=== PATIENT | female | born 1995 | race Caucasian/White ===

== ENCOUNTER 2018-05-16 18:42 | Emergency (ER) | payer MEDICAID ==
[~2018-05-16] VITALS: Ht 167.6 cm; Wt 58.8 kg
[2018-05-16 18:44] VITALS: BP 107/71
[2018-05-16] MEDS ORDERED: DEXAMETHASONE 1 MG TABLET PO ONE (19:30)
[2018-05-16] MEDS ORDERED: OXYMETAZOLINE NASAL SPRAY 0.05%, 15ML NAS ONE (19:30)
[2018-05-16] MEDS ORDERED: OXYMETAZOLINE NASAL SPRAY 0.05%, 15ML ONE (19:32)
[2018-05-16] MEDS ORDERED: DEXAMETHASONE 4 MG TABLET ONE (19:34)
== END 2018-05-16 19:58 | disposition home or self-care (01) ==
LOC: ED 19:15
DX: J01.00 Acute maxillary sinusitis, unspecified (principal); J45.909 Unspecified asthma, uncomplicated; F17.200 Nicotine dependence, unspecified, uncomplicated
CPT/HCPCS: 99283

== ENCOUNTER 2019-05-27 08:04 | Inpatient (IN) | payer MEDICAID ==
[~2019-05-27] VITALS: Ht 167.6 cm; Wt 66.0 kg
[2019-05-27] MEDS ORDERED: D5%-LACTATED RINGERS 1,000 ML IV SCH (08:28)
[2019-05-27] MEDS ORDERED: OXYTOCIN 30U/ 0.9% NaCL 500ML 500 ML IV ONE (08:28)
[2019-05-27] MEDS ORDERED: OXYTOCIN 30U/ 0.9% NaCL 500ML 500 ML IV PRN (08:28)
[2019-05-27] MEDS ORDERED: SODIUM CHLORIDE FLUSH 10ML SYR IVF PRN (08:30)
[2019-05-27] MEDS ORDERED: FENTANYL PF 100 MCG/2ML IVPush PRN (08:30)
[2019-05-27] MEDS ORDERED: METOCLOPRAMIDE 5 MG/ML, 2ML IVPush PRN (08:30)
[2019-05-27] MEDS ORDERED: FENTANYL PF 100 MCG/2ML IV PRN (08:30)
[2019-05-27] MEDS ORDERED: TERBUTALINE 1 MG/ML, 1ML IVPush PRN (08:30)
[2019-05-27] MEDS ORDERED: ONDANSETRON 2MG/ML, 2ML IVPush PRN ×2 (08:30→17:00)
[2019-05-27] MEDS ORDERED: SODIUM CITRATE/CITRIC ACID 15 ML UDC PO PRN (08:30)
[2019-05-27] MEDS ORDERED: NEWBORN KIT ONE (08:56)
[2019-05-27] MEDS ORDERED: MISOPROSTOL 200 MCG TABLET ONE (08:56)
[2019-05-27] MEDS ORDERED: LIDOCAINE 1%, 20ML ONE (08:56)
[2019-05-27] MEDS ORDERED: OXYTOCIN 30U/ 0.9% NaCL 500ML 500 ML ONE (08:57)
[2019-05-27] MEDS: LACTATED RINGERS 1,000 ML IV SCH ×2 (09:09→17:37)
[2019-05-27 09:14] LABS: BASOPHILS # (AUTO) 0.06 x10^3/uL (0-0.1); BASOPHILS % (AUTO) 1 % (0-1); EOSINOPHILS # (AUTO) 0.27 x10^3/uL (0-0.4); EOSINOPHILS % (AUTO) 3 % (1-7); LYMPHOCYTES # (AUTO) 1.75 x10^3/uL (1-3.4); LYMPHOCYTES % (AUTO) 19 % (22-44); MD NO; MEAN CORPUSCULAR HEMOGLOBIN 29.7 pg (27.0-34.8); MEAN CORPUSCULAR HGB CONC 32.8 g/dL (32.4-35.8); MEAN CORPUSCULAR VOLUME 90.6 fL (80-100); MEAN PLATELET VOLUME 9.4 fL (7.4-10.4); MONOCYTES # (AUTO) 0.43 x10^3/uL (0.2-0.8); MONOCYTES % (AUTO) 5 % (2-9); NEUTROPHILS # (AUTO) 6.56 x10^3/uL (1.8-6.8); NEUTROPHILS % (AUTO) 72 % (42-75); PLATELET COUNT 188 x10^3/uL (130-400); RED BLOOD COUNT 4.14 x10^6/uL (3.82-5.3); RED CELL DISTRIBUTION WIDTH 13.8 % (9.6-15.2)
[2019-05-27] MEDS ORDERED: FENTANYL/BUPIV./NS/PF 250 ML EPIDCONT SCH ×2 (15:52→16:39)
[2019-05-27] MEDS ORDERED: LACTATED RINGERS 1,000 ML IVBOLUS PRN ×2 (16:00→18:00)
[2019-05-27] MEDS ORDERED: FENTANYL PF 500 MCG, BUPIVACAINE/PF 0.5%, 30ML 62.5 ML in SODIUM CHLORIDE 0.9% 177.5 ML EPIDCONT SCH (16:00)
[2019-05-27] MEDS ORDERED: BUPIVACAINE 0.25% ONE ×2 (16:16→20:55)
[2019-05-27] MEDS ORDERED: LIDOCAINE/PF 1.5%-EPI 1:200K, 30ML ONE (16:16)
[2019-05-27] MEDS ORDERED: EPHEDRINE 50 MG/ML, 1ML IVPush PRN (17:00)
[2019-05-27] MEDS ORDERED: DIPHENHYDRAMINE 50 MG/ML, 1ML IVPush PRN (17:00)
[2019-05-27] MEDS ORDERED: NALOXONE 0.4 MG/ML, 1ML IVPush PRN (17:00)
[2019-05-27] MEDS ORDERED: ALBUTEROL SULFATE 2.5MG/0.5ML ONE (17:20)
[2019-05-27 17:22] LABS: AMPHETAMINE SCREEN, URINE Negative (Negative); BARBITURATE SCREEN, URINE Negative (Negative); BENZODIAZEPINE SCREEN, URINE Negative (Negative); CANNABINOID SCREEN, URINE Negative (Negative); COCAINE SCREEN, URINE Negative (Negative); METHADONE SCREEN, URINE Negative (Negative); OPIATE SCREEN, URINE Negative (Negative)
[2019-05-27] MEDS ORDERED: LACTATED RINGERS 1,000 ML IV SCH (18:00)
[2019-05-27] MEDS ORDERED: ALBUTEROL SULFATE 2.5MG/0.5ML NPPB PRN (18:00)
[2019-05-27 19:02] VITALS: BP 125/78
[2019-05-27] MEDS ORDERED: LIDOCAINE/MPF 2%-EPI 1:200K, 20 ML ONE (21:30)
[2019-05-28] MEDS ORDERED: IBUPROFEN 600 MG TABLET ONE (01:14)
[2019-05-28] MEDS ORDERED: IBUPROFEN 800 MG TABLET ONE (01:14)
[2019-05-28] MEDS ORDERED: OXYTOCIN 30U/ 0.9% NaCL 500ML 500 ML ONE (01:14)
[2019-05-28] MEDS: IBUPROFEN 600 MG TABLET PO PRN ×2 (01:24→07:45)
[2019-05-28] MEDS ORDERED: MISOPROSTOL 200 MCG TABLET PR PRN (01:30)
[2019-05-28] MEDS ORDERED: METHYLERGONOVINE 0.2 MG/ML IM PRN (01:30)
[2019-05-28 04:00] VITALS: BP 105/66
[2019-05-28] MEDS: OXYTOCIN 30U/ 0.9% NaCL 500ML 500 ML IV SCH ×3 (04:22→21:07)
[2019-05-28] MEDS: PRENATAL VIT/IRON/FA 1 EACH TABLET PO SCH (07:44)
[2019-05-28 07:45] VITALS: BP 114/70
[2019-05-28 08:51] LABS: MEAN CORPUSCULAR HGB CONC 32.6 g/dL (32.4-35.8); MEAN PLATELET VOLUME 9.2 fL (7.4-10.4); PLATELET COUNT 155 x10^3/uL (130-400); RED BLOOD COUNT 3.69 x10^6/uL (3.82-5.3); RED CELL DISTRIBUTION WIDTH 13.9 % (9.6-15.2)
[2019-05-28 09:34] LABS: MD YES
[2019-05-28 09:37] LABS: BAND#(MANUAL) 1.19 x10^3/uL; BANDS%(MANUAL) 8 % (0-7); EOS% (MANUAL) 2 % (1-7); LYMPH#(MANUAL) 1.49 x10^3/uL (1-3.4); LYMPHS% (MANUAL) 10 % (22-44); MONOS% (MANUAL) 4 % (2-9); SEG#(MANUAL) 11.32 x10^3/uL (1.8-6.8); SEGS% (MANUAL) 76 % (42-75)
[2019-05-28 09:38] LABS: <PLATELET ESTIMATE> ADEQUATE; <PLT MORPHOLOGY> NORMAL PLT MORPH; <RBC MORPHOLOGY> NORMAL
[2019-05-28] MEDS: BUPRENORPHINE/NALOXONE 8-2MG SL SCH (11:52)
[2019-05-28 12:00] VITALS: BP 128/80
[2019-05-28 16:42] VITALS: BP 112/68
[2019-05-28 19:40] VITALS: BP 113/71
[2019-05-29] MEDS: IBUPROFEN 600 MG TABLET PO PRN ×4 (00:27→23:21)
[2019-05-29] MEDS: OXYTOCIN 30U/ 0.9% NaCL 500ML 500 ML IV SCH ×2 (07:07→17:07)
[2019-05-29 08:00] VITALS: BP 113/69
[2019-05-29] MEDS: PRENATAL VIT/IRON/FA 1 EACH TABLET PO SCH (09:00)
[2019-05-29] MEDS: BUPRENORPHINE/NALOXONE 8-2MG SL SCH (11:36)
[2019-05-29] MEDS ORDERED: MEASLES,MUMPS&RUBELLA VACC/PF 0.5 ML SQ-VACC ONE (18:00)
[2019-05-29 19:41] VITALS: BP 113/67
[2019-05-29] MEDS: DOCUSATE 100 MG CAPSULE PO PRN (23:21)
[2019-05-30] MEDS: OXYTOCIN 30U/ 0.9% NaCL 500ML 500 ML IV SCH (03:07)
[2019-05-30] MEDS: IBUPROFEN 600 MG TABLET PO PRN ×3 (05:40→18:22)
[2019-05-30 08:55] VITALS: BP 117/68
[2019-05-30] MEDS: DOCUSATE 100 MG CAPSULE PO PRN (09:30)
[2019-05-30] MEDS: PRENATAL VIT/IRON/FA 1 EACH TABLET PO SCH (09:30)
[2019-05-30] MEDS: BUPRENORPHINE/NALOXONE 8-2MG SL SCH (09:30)
[2019-05-30] MEDS ORDERED: DOCU-131 PO (14:27)
[2019-05-30] MEDS ORDERED: IBUP-1222 PO (14:27)
== END 2019-05-30 18:30 | disposition home or self-care (01) | DRG 807 ==
LOC: LDIP 08:04 → 2NW 05-28 03:12
PROVIDERS: ADMIT Obstetrics & Gynecology; ATTEND Obstetrics & Gynecology
PROC: 10E0XZZ Delivery of Products of Conception, External Approach (ICD-10-PCS; principal; 2019-05-28)
PROC: 10H07YZ Insertion of Other Device into Products of Conception, Via Natural or Artificial Opening (ICD-10-PCS; 2019-05-28)
PROC: 3E0R3BZ Introduction of Anesthetic Agent into Spinal Canal, Percutaneous Approach (ICD-10-PCS; 2019-05-28)
PROC: 00HU33Z Insertion of Infusion Device into Spinal Canal, Percutaneous Approach (ICD-10-PCS; 2019-05-28)
PROC: 0UQMXZZ Repair Vulva, External Approach (ICD-10-PCS; 2019-05-28)
PROC: 10907ZC Drainage of Amniotic Fluid, Therapeutic from Products of Conception, Via Natural or Artificial Opening (ICD-10-PCS; 2019-05-28)
DX: O69.81X0 Labor and delivery complicated by cord around neck, without compression, not applicable or unspecified (principal); Z37.0 Single live birth; Z3A.39 39 weeks gestation of pregnancy; O71.89 Other specified obstetric trauma
CPT/HCPCS: 36415; J0574; J7611; S0020; 80307; 85025; 86850; 86900; 94640; G0378; J3010; J3490; J2590; J7050; J7120